=== PATIENT | male | born 1970 | race Caucasian/White ===

== ENCOUNTER → 2020-07-15 | Outpatient (CLI) | payer OTHER ==
[2020-07-15 14:08] LABS: HEMOGLOBIN 15.8 gm/dl (14.0-17.5); RED BLOOD COUNT 4.84 M/UL (4.20-5.50); WHITE BLOOD COUNT 7.2 K/UL (4.5-11.0)
[2020-07-15 14:34] LABS: BUN/CREATININE RATIO 17 (0-10)
== END ==
LOC: LAB 13:25
PROVIDERS: Family Medicine
DX: Z00.00 Encounter for general adult medical examination without abnormal findings (principal); Z13.21 Encounter for screening for nutritional disorder; Z13.220 Encounter for screening for lipoid disorders; Z13.228 Encounter for screening for other metabolic disorders; Z12.5 Encounter for screening for malignant neoplasm of prostate; Z13.29 Encounter for screening for other suspected endocrine disorder
CPT/HCPCS: 36415; 80053; 80061; 82607; 84153; 84439; 84443; 85027

== ENCOUNTER → 2020-11-13 | Outpatient (CLI) | payer OTHER ==
[2020-11-13 12:26] LABS: HEMOGLOBIN 16.1 gm/dl (14.0-17.5); RED BLOOD COUNT 4.93 M/UL (4.20-5.50); WHITE BLOOD COUNT 10.1 K/UL (4.5-11.0)
[2020-11-13 12:48] LABS: BUN/CREATININE RATIO 22 (0-10)
== END ==
LOC: LAB 10:38
PROVIDERS: Family Medicine
DX: R73.01 Impaired fasting glucose (principal); E55.9 Vitamin D deficiency, unspecified; D51.8 Other vitamin B12 deficiency anemias; E78.5 Hyperlipidemia, unspecified
CPT/HCPCS: 36415; 80053; 80061; 82607; 83036; 85027

== ENCOUNTER 2021-04-09 18:00 | Inpatient (IN) | payer OTHER ==
[~2021-04-09] VITALS: Ht 182.9 cm; Wt 98.0 kg
[2021-04-09 19:30] LABS: HEMOGLOBIN 14.8 gm/dl (14.0-17.5); RED BLOOD COUNT 4.48 M/UL (4.20-5.50); WHITE BLOOD COUNT 12.8 K/UL (4.5-11.0)
[2021-04-09 20:03] LABS: BUN/CREATININE RATIO 15 (0-10)
[2021-04-10 06:08] LABS: HEMOGLOBIN 15.2 gm/dl (14.0-17.5); RED BLOOD COUNT 4.57 M/UL (4.20-5.50)
[2021-04-10 06:12] LABS: WHITE BLOOD COUNT 8.9 K/UL (4.5-11.0)
[2021-04-10 06:42] LABS: BUN/CREATININE RATIO 12 (0-10)
[2021-04-10] MEDS ORDERED: AUGMENTIN 875-1 EACH PO (13:44)
[2021-04-10] MEDS ORDERED: IBUPROFEN600 MG PO (13:44)
[2021-04-10] MEDS ORDERED: BACTRIM DS TAB1 EACH PO (13:44)
[2021-04-11 08:13] LABS: HIV SCREEN 4TH GENERATION WRFX Non Reactive (Non Reactive)
[2021-04-11 10:13] LABS: HBSAG SCREEN Negative (Negative); HEPATITIS B SURF AB QUANT <3.1 mIU/mL (Immunity>9.9)
== END 2021-04-10 14:40 | disposition left against medical advice (07) | DRG 603 ==
LOC: ER1 18:00 → CDU 21:00 → PROG CARE 21:00
PROVIDERS: Internal Medicine; Physician Assistant; ADMIT Internal Medicine
DX: L03.113 Cellulitis of right upper limb (principal); R74.01 Elevation of levels of liver transaminase levels; B18.2 Chronic viral hepatitis C; Z20.822 Contact with and (suspected) exposure to COVID-19; F17.210 Nicotine dependence, cigarettes, uncomplicated; F19.10 Other psychoactive substance abuse, uncomplicated; F10.20 Alcohol dependence, uncomplicated; Z82.49 Family history of ischemic heart disease and other diseases of the circulatory system; Z79.899 Other long term (current) drug therapy
CPT/HCPCS: 36415; 73201; 80053; 80061; 80307; 82550; 82553; 82728; 83036; 83605; 84100; 84439; 84443; 84484; 84550; 85025; 85652; 86140; 86317; 86704; 87040; 87340; 87389; 96374; 96375; 99285; J0692; J1650; J1885; J3370; J3411; J3475; J7030; J7070; Q9967; U0002